=== PATIENT | male | born 1995 | race African-American/Black ===

== ENCOUNTER 2017-07-17 11:44 | Emergency (ER) | payer MEDICAID ==
[~2017-07-17 11:44] MED LIST: IBUP800T23 PO
[2017-07-17 12:36] VITALS: BP 175/97; PULSE 92; RESP 12; TEMP 98.4; O2SAT 100
--- NOTE | 2017-07-17 13:24 | RADRPT ---
EXAM DATE/TIME: 07/17/2017 13:08 [place] COMPARISON: No previous studies available for comparison. INDICATIONS : Patient injured posterior aspect of ankle playing football. MEDICAL HISTORY : None. SURGICAL HISTORY : None. ENCOUNTER: Initial ACUITY: 1 day PAIN SCORE: 10/10 LOCATION: Left posterior ankle FINDINGS: Three view exam was performed of the left ankle. The bony structures are in normal alignment. No ev idence of fracture, dislocation, or soft tissue swelling. The ankle mortise is intact. No radiopaqu e foreign bodies are seen. Bony mineralization is normal. CONCLUSION: Negative for fracture Connor Mathur MD FACR on July 17, 2017 at 13:22 Board Certified Radiologist. This report was verified electronically.
--- NOTE | 2017-07-17 15:18 | PD ---
HPI Chief Complaint: Injury Time Seen by Provider: 15:06 Travel History International Travel<30 days: No Contact w/Intl Traveler<30days: No Traveled to known affect area: No History of Present Illness HPI 22-year-old male here with right ankle pain times one day. While at practice patient pushed off with his right leg and felt immediate pain in the right Achilles tendon. He denies paresthesia or weakness of the extremity. He is able to flex and extend and bear weight on the extremity but movement is painful. PFSH Past Medical History Medical History: Denies Significant Hx Diminished Hearing: No Tetanus Vaccination: > 5 Years Influenza Vaccination: No Past Surgical History Surgical History: No Previous Surgery Social History Alcohol Use: No Tobacco Use: No Substance Use: No Allergies-Medications (Allergen,Severity, Reaction): Coded Allergies: No Known Allergies (Unverified Adverse Reaction, Unknown, 07/17/17) Reported Meds & Prescriptions Reported Meds & Active Scripts Active No Active Prescriptions or Reported Medications Review of Systems Except as stated in HPI: all other systems reviewed are Neg Physical Exam Narrative GENERAL: Alert and well-appearing 22-year-old male SKIN: Warm and dry. HEAD: Normocephalic. EYES:No injection or drainage. NECK: Supple, trachea midline. CARDIOVASCULAR: Regular rate and rhythm without murmurs, gallops, or rubs. MUSCULOSKELETAL: No cyanosis, or edema. Left lower extremity: +TTP over the posterior aspect of the ankle and over the Achilles tendon. Negative Hightower' s test, although plantarflexion is very limited. 2+ dorsal pedis pulse. Normal sensation. Brisk cap refill. Data Data Last Documented VS Vital Signs Date Time Temp Pulse Resp B/P (MAP) Pulse Ox O2 Delivery O2 Flow Rate FiO2 07/17/17 12:36 98.4 92 12 175/97 (123) 100 Orders Orders Ankle, Complete ([id number]) (07/17/17 ) Splint Or Brace Apply/Monitor (07/17/17 15:11) Crutches (07/17/17 ) MDM Medical Decision Making Medical Screen Exam Complete: Yes Emergency Medical Condition: Yes Differential Diagnosis Achilles tendon injury, Achilles tendon rupture, ankle fracture, ankle sprain Narrative Course 22-year-old male here with an injury to his left Achilles. The extremity is neurovascularly intact. X-rays negative for fracture. Patient was placed in a posterior short leg splint and slight plantarflexion. He was instructed to follow-up with orthopedic this week. Importance of follow-up appointment this week was stressed to patient. Patient verbalizes understanding and agrees to plan. Diagnosis Primary Impression: Achilles tendon injury Qualified Codes: S86.002A - Unspecified injury of left Achilles tendon, initial encounter Referrals: Paul Boss MD Orthopedist Additional Instructions: Splint stay on until follow-up with orthopedic doctor. Call to make a follow-up appointment with orthopedics this week. Ice and elevate the extremity. Crutches for weightbearing. Ibuprofen 800 mg every 6 hours as needed for pain. Scripts No Active Prescriptions or Reported Meds Disposition: 01 DISCHARGE HOME Condition: Stable Lauren Rubio Jul 17, 2017 15:18
== END 2017-07-17 15:55 | disposition home or self-care (01) ==
LOC: NEPK 11:44
DX: S86.002A Unspecified injury of left Achilles tendon, initial encounter (principal); X58.XXXA Exposure to other specified factors, initial encounter
CPT/HCPCS: 29515; 73610; 99283; E0113